=== PATIENT | female | born 1995 | race Caucasian/White ===

== ENCOUNTER 2022-11-19 10:00 | Inpatient (IN) | payer OTHER ==
[2022-11-19 11:29] VITALS: BMI 38.7
[2022-11-19] MEDS ORDERED: PHENYLEPHRINE HCL 10 MG/1 ML SINGLE DOSE VIAL ONE (13:13)
[2022-11-19] MEDS ORDERED: KETOROLAC TROMETHAMINE 30 MG/1 ML VIAL ONE (13:13)
[2022-11-19] MEDS ORDERED: ONDANSETRON 4 MG/2 ML VIAL ONE (13:13)
[2022-11-19] MEDS ORDERED: OXYTOCIN 10 UNITS/ML VIAL ONE (13:13)
[2022-11-19] MEDS ORDERED: ceFAZolin SODIUM 1 GM VIAL ONE (13:13)
[2022-11-19] MEDS ORDERED: morphine SULFATE (PF) 1 MG/2 ML SYRINGE ONE (13:13)
[2022-11-19] MEDS ORDERED: FENTANYL CITRATE/PF 50 MCG/ML VIAL ONE (13:13)
[2022-11-19] MEDS ORDERED: ELECTROLYTE-148 SOLN 500 ML IV ONE (13:45)
[2022-11-19] MEDS ORDERED: CITRIC ACID/SODIUM CITRATE 30 ML UNIT-DOSE CUP PO ONE (13:45)
[2022-11-19] MEDS ORDERED: ELECTROLYTE-148 SOLN 1,000 ML IV SCH (13:45)
[2022-11-19] MEDS ORDERED: METHYLERGONOVINE MALEATE 0.2 MG/1 ML AMP IM PRN (15:04)
[2022-11-19] MEDS ORDERED: IBUPROFEN 800 MG/8 ML IJ IVPB PRN (15:04)
[2022-11-19] MEDS: OXYTOCIN 20 UNITS in 0.9% NS 20 UNIT/1,000 ML INFUS.BAG IV SCH (15:55)
[2022-11-19] MEDS ORDERED: OXYTOCIN 20 UNITS in 0.9% NS 20 UNIT/1,000 ML INFUS.BAG IV ONE (15:56)
[2022-11-20] MEDS: OXYTOCIN 20 UNITS in 0.9% NS 20 UNIT/1,000 ML INFUS.BAG IV SCH (01:33)
[2022-11-20] MEDS ORDERED: oxyCODONE HCL 5 MG TABLET PO PRN ×2 (03:04)
[2022-11-20 09:28] LABS: BASO % 0.6 % (0-2.0); EOS % 0.3 % (0-4.5); LYMPH % 19.3 % (8-40); MCH 26.4 pg (25.7-33.7); MCHC 33.3 g/dl (32.0-36.0); MEAN CELL VOLUME 79.4 fl (80-96); MEAN PLT VOLUME 9.2 fl (7.5-11.1); MONO % 6.4 % (3.8-10.2); NEUT % 73.4 % (42.8-82.8); PLATELET COUNT 234 10^3/uL (134-434); RBC 3.78 M/mm3 (3.60-5.2); RDW 14.1 % (11.6-15.6); WHITE BLOOD COUNT 10.8 K/mm3 (4.0-10.0)
[2022-11-20] MEDS: IBUPROFEN 600 MG TABLET (FP) PO PRN ×2 (13:02→20:11)
[2022-11-20] MEDS: SIMETHICONE 80 MG TAB.CHEW (FP) PO PRN ×2 (13:03→20:36)
[2022-11-20] MEDS ORDERED: BISACODYL 10 MG SUPP.RECT RC PRN (15:04)
[2022-11-20] MEDS: SENNOSIDES/DOCUSATE COMBO (SENNA PLUS) TABLET (UD) PO PRN (22:10)
[2022-11-20] MEDS: ACETAMINOPHEN 325 MG TABLET (FP) PO PRN (22:10)
[2022-11-21] MEDS: IBUPROFEN 600 MG TABLET (FP) PO PRN ×3 (06:19→19:43)
[2022-11-21 09:34] VITALS: RESP 16
[2022-11-21] MEDS: ACETAMINOPHEN 325 MG TABLET (FP) PO PRN (14:34)
[2022-11-21] MEDS: SIMETHICONE 80 MG TAB.CHEW (FP) PO PRN (19:44)
[2022-11-21] MEDS: SENNOSIDES/DOCUSATE COMBO (SENNA PLUS) TABLET (UD) PO PRN (19:46)
[2022-11-22] MEDS: IBUPROFEN 600 MG TABLET (FP) PO PRN ×2 (03:47→10:58)
[2022-11-22] MEDS: SIMETHICONE 80 MG TAB.CHEW (FP) PO PRN ×2 (03:47→10:58)
[2022-11-22 08:13] VITALS: BP 125/70; PULSE 71; TEMP 98
== END 2022-11-22 12:35 | disposition home or self-care (01) | DRG 540 ==
LOC: JLDR 10:00 → J3W 16:27
PROVIDERS: ADMIT Obstetrics & Gynecology; ATTEND Obstetrics & Gynecology
PROC: 10D00Z1 Extraction of Products of Conception, Low, Open Approach (ICD-10-PCS; principal; 2022-11-19)
DX: O34.211 Maternal care for low transverse scar from previous cesarean delivery (principal); Z3A.39 39 weeks gestation of pregnancy; Z37.0 Single live birth
CPT/HCPCS: 36415; 85025; 88307-TC